=== PATIENT | male | born 1970 | race Hispanic/Latino ===

== ENCOUNTER 2021-11-30 06:20 | Day surgery (SDC) | payer BC ==
[2021-11-30] MEDS ORDERED: Ringers Lactate 1,000 ML IV ONE (06:38)
[2021-11-30] MEDS ORDERED: CEFAZOLIN/SWI 2gm 2 GM/20 ML SYR ONE (06:39)
[2021-11-30] MEDS ORDERED: KETOROLAC 30 MG/ML INJ ONE (07:07)
[2021-11-30] MEDS ORDERED: FENTANYL CITR 100 MCG/2 ML ONE (07:07)
[2021-11-30] MEDS ORDERED: propofoL 200 MG/20 ML VIAL IV ONE (07:07)
[2021-11-30] MEDS ORDERED: dexAMETHasone 10 MG/ML VIAL ONE (07:07)
[2021-11-30] MEDS ORDERED: LIDOCAINE 2% MPF 5 ML VIAL ONE (07:07)
[2021-11-30] MEDS ORDERED: ONDANSETRON 4 MG/2 ML VIAL ONE (07:08)
[2021-11-30] MEDS ORDERED: MIDAZOLAM HCL 2 MG/2 ML INJ ONE (07:08)
[2021-11-30] MEDS: BUPIVACAINE 0.25% PF 10 ML VIAL ONE ×2 (08:08→08:15)
[2021-11-30] MEDS ORDERED: NA CHLORIDE 0.9% 1,000 ML ONE (08:18)
--- NOTE | 2021-11-30 08:42 | P.BOP ---
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
[2021-11-30 10:37] VITALS: BP 123/72; O2SAT 99
[2021-11-30 10:45] VITALS: TEMP 97
--- NOTE | 2021-11-30 19:00 | OP ---
Date of Procedure: 11/30/2021 Surgeon: Luis Rapp MD Preoperative Diagnosis: Right knee medial meniscus tear. Postoperative Diagnosis: Right knee medial meniscus tear. Procedure Performed: Arthroscopic partial medial meniscectomy. Anesthesia: General, LMA. Fluids: Per Anesthesia record. Estimated Blood Loss: 3 cc. Complications: None. Implants: None. Tourniquet Time: 23 minutes at 300 mmHg. Indication For Procedure: Zeb is a 51-year-old male who presented to my clinic with signs, sympt oms, and MRI findings consistent with a right knee medial meniscus tear. The patient failed conserva tive treatment measures and after discussion with the patient risks and benefits associated with oper ative and nonoperative treatment he expressed understanding and elected to proceed with operative rex atment. Description Of Procedure: After informed consent was obtained, the patient was identified in the pre operative holding area. The right lower extremity was marked. The patient was then brought back to the operating room, transferred to the operating table in supine fashion, placed under general LMA an esthesia. The right lower extremity was then prepped and draped in usual sterile fashion. A time-ou t was initiated. The correct patient and procedure were confirmed and identified. The patient did r eceive his preop prophylactic antibiotics. Standard anteromedial, anterolateral portals were created . Arthroscope was brought in via the anterolateral portal and diagnostic arthroscopy was performed. The patient was noted to have pristine cartilage of the undersurface of patella and trochlear groove . There were no loose bodies found within the medial and lateral gutters. Arthroscope was then brou ght in the medial compartment. The patient was noted to have overall no significant chondromalacia n oted. Some mild fissuring noted to the medial femoral condyle. The patient noted to have a complex tear of the posterior horn of the medial meniscus. Partial medial meniscectomy was performed using m eniscal biters and arthroscopic shaver to smooth meniscal borders. The arthroscope was then brought in the intercondylar notch. The patient was noted to have an intact ACL and PCL which were stable to probe. The arthroscope was then brought in the lateral compartment. The patient was noted to have a pristine cartilage of the lateral femoral condyle as well as the lateral tibial plateau. Lateral m eniscus was stable to probe without tear. Arthroscopic instruments were then removed without complic ation. Wounds were then irrigated thoroughly with normal saline. Skin was approximated using 3-0 Mo nocryl. Sterile dressings were applied. Tourniquet was let down. The patient was awakened and bryson sferred back in stable condition. Postoperative Plan: The patient will be weightbearing as tolerated. Physical Therapy will be consul sandra and the patient will follow post meniscectomy protocol. He will follow up in 1 week for re-evalu ation and wound checks. VICTORINO/SAMMY Voice ID: [id number] Report ID: [id number]
== END 2021-11-30 10:25 | disposition home or self-care (01) ==
LOC: OR 06:20
PROVIDERS: ATTEND Orthopaedic Surgery Sports Medicine
PROC: 0SBC4ZZ Excision of Right Knee Joint, Percutaneous Endoscopic Approach (ICD-10-PCS; principal; 2021-11-30 07:30)
DX: S83.241A Other tear of medial meniscus, current injury, right knee, initial encounter (principal); M26.651 Arthropathy of right temporomandibular joint; Z20.822 Contact with and (suspected) exposure to COVID-19
CPT/HCPCS: 29881; U0002; J2704; J2250; J3010; J1100; J0690; J7120; J7030; J2405

== ENCOUNTER 2023-07-08 07:16 | Emergency (ER) | payer BC ==
--- OUTSIDE RECORDS SUMMARY | 2023-07-08 07:20 | XMS REPORT | Continuity of Care Document ---
:1970 Author Organization [facility] t Address [address] [address] [facility] [address] [place] [address] Care Team Providers Name Role Phone Sarahy Boyce Primary Care Physician [phone] Pcp, Patient Does Not Have A Attending Clinician [phone] Lab, Adc Fam Pob I Attending Clinician Unavailable Vicki Kaba Attending Clinician VICKI JUAREZ Attending Clinician Unavailable Doctor Unassigned, [place] Attending Clinician Unavailable Payers Payer Name Policy Type Policy Number Effective Date Expiration Date S nona Blue Cross C1 [id number] [facility] Blue Cross C1 [id number] [facility] Blue Cross C1 [id number] [facility] Blue Cross C1 [id number] [facility] Blue Cross C1 [id number] [facility] Blue Cross C1 [id number] [facility] Blue Cross C1 [id number] [facility] Blue Cross C1 [id number] Common Spiri t Blue [facility] Problems Condition Condition Condition Status Onset Resolution Last Treating Co mments Source Name Details Category Date Date Treatment Clinician Date [id number] Arthritis Problem Active Co mmon [id number] of knee, [facility] right [facility] [id number] Other Problem Active Common chronic [facility] pain [facility] [id number] Pain in Problem Active Comm on right knee [facility] [id number] Tear of Problem Active Commo n medial [facility] meniscus - [facility] of right [facility] unspecifie Medica l d tear Center type, unspecifie d whether old or current tear, initial encounter [id number] Pre-op Problem Active Common testing [facility] Allergies, Adverse Reactions, Alerts Allergy Allergy Status Severity Reaction(s) Onset Inactive Treating Comm ents Source Name Type Date Date Clinician Sachi Gomez Active Intraven ty to 05-29 ous adverse 00:00: reaction 00 to drug NO KNOWN Drug Active [facility] Social History Social Habit Start Date Stop Date Quantity Comments Source History of Tobacco Use Co mmon [facility] Sex Assigned At Com mon [facility] Smoking Status Start Date Stop Date Source Unknown if ever smoked [facility] Never Smoker [facility] Medications Ordered Filled Start Stop Current Ordering Indication Dosage Frequency Signature Comments Components Source Medication Medication Date Date Medication? Clinician (SIG) Name Name &lt 0 No - 00:00: 00 &lt 2021-0 No 05-29 00:00: 00 Dose 2021-0 No Unknown 05-29 00:00: 00 Dose 2021-0 No Unknown 05-29 00:00: 00 HYDROcodone HYDROcodone No 1{table HYDROcodon -Acetaminop -Acetaminop - t_as_ne e-Acetamin hen 5-325 hen 5-325 00:00: eded} ophen MG MG 00 5-325 MG HYDROcodone HYDROcodone 0 No 1{table HYDROcodon -Acetaminop -Acetaminop -06 t_as_ne e-Acetamin hen 5-325 hen 5-325 00:00: eded} ophen MG MG 00 5-325 MG HYDROcodone HYDROcodone 2021-0 No 1{table HYDROcodon -Acetaminop -Acetaminop 1-06 t_as_ne e-Acetamin hen 5-325 hen 5-325 00:00: eded} ophen MG MG 00 5-325 MG HYDROcodone HYDROcodone 2021-0 No 1{table HYDROcodon -Acetaminop -Acetaminop 1-06 t_as_ne e-Acetamin hen 5-325 hen 5-325 00:00: eded} ophen MG MG 00 5-325 MG HYDROcodone HYDROcodone 2021-0 No 1{table HYDROcodon -Acetaminop -Acetaminop 1-06 t_as_ne e-Acetamin hen 5-325 hen 5-325 00:00: eded} ophen MG MG 00 5-325 MG HYDROcodone HYDROcodone 2021-0 No 1{table HYDROcodon -Acetaminop -Acetaminop 1-06 t_as_ne e-Acetamin hen 5-325 hen 5-325 00:00: eded} ophen MG MG 00 5-325 MG HYDROcodone HYDROcodone 2021-0 No 1{table HYDROcodon -Acetaminop -Acetaminop 1-06 t_as_ne e-Acetamin hen 5-325 hen 5-325 00:00: eded} ophen MG MG 00 5-325 MG HYDROcodone HYDROcodone 2021-0 No 1{table -Acetaminop -Acetaminop 1-06 t_as_ne hen 5-325 hen 5-325 00:00: eded} MG MG 00 Bupivicaine Bupivicaine 2020-0 No Common [facility] [place] [facility] Spirit 00:00: - [facility]I 00 [facility] Kenalog Kenalog 2020-0 No 40mg Common (Triamcinol (Triamcinol 8-26 S pirit one) one) 00:00: - CHI 00 [facility] Bupivicaine Bupivicaine 2020-0 No Common [place] [facility] [place] [facility] 00:00: - [facility]I 00 [facility] Kenalog Kenalog 2020-0 No 40mg Common (Triamcinol (Triamcinol 8-26 S pirit one) one) 00:00: - CHI 00 [facility] fenofibrate 2021-0 No 1mg nanocrystal 5-16 lized 48 mg 00:00: tablet 00 Vitamin D2 No 1(50,00 1,250 mcg 5-16 0 unit) (50,000 00:00: unit) 00 capsule Vitamin D Vitamin D No Vitamin D (Ergocalcif (Ergocalcif (Ergocalci sobia) sobia) ferol) Fenofibrate Fenofibrate No Fenofibrat e Vitamin D Vitamin D No Vitamin D (Ergocalcif (Ergocalcif (Ergocalci sobia) sobia) ferol) Fenofibrate Fenofibrate No Fenofibrat e Vitamin D Vitamin D No Vitamin D (Ergocalcif (Ergocalcif (Ergocalci sobia) sobia) ferol) Fenofibrate Fenofibrate No Fenofibrat e Vitamin D Vitamin D No Vitamin D (Ergocalcif (Ergocalcif (Ergocalci sobia) sobia) ferol) Fenofibrate Fenofibrate No Fenofibrat e Vitamin D Vitamin D No Vitamin D (Ergocalcif (Ergocalcif (Ergocalci sobia) sobia) ferol) Fenofibrate Fenofibrate No Fenofibrat e Vitamin D Vitamin D No Vitamin D (Ergocalcif (Ergocalcif (Ergocalci sobia) sobia) ferol) Fenofibrate Fenofibrate No Fenofibrat e Fenofibrate Fenofibrate No Fenofibrat e Vitamin D Vitamin D No Vitamin D (Ergocalcif (Ergocalcif (Ergocalci sobia) sobia) ferol) No Known No Known No Common Medications Medications S pirit - CHI [facility] Fenofibrate Fenofibrate No Fenofibrat e Vitamin D Vitamin D No Vitamin D (Ergocalcif (Ergocalcif (Ergocalci sobia) sobia) ferol) Fenofibrate Fenofibrate No Fenofibrat e Vitamin D Vitamin D No Vitamin D (Ergocalcif (Ergocalcif (Ergocalci sobia) sobia) ferol) Fenofibrate Fenofibrate No Fenofibrat e Vitamin D Vitamin D No Vitamin D (Ergocalcif (Ergocalcif (Ergocalci sobia) sobia) ferol) Vitamin D Vitamin D No Vitamin D (Ergocalcif (Ergocalcif (Ergocalci sobia) sobia) ferol) Fenofibrate Fenofibrate No Fenofibrat e Vitamin D Vitamin D No Vitamin D (Ergocalcif (Ergocalcif (Ergocalci sobia) sobia) ferol) Fenofibrate Fenofibrate No Fenofibrat e Vitamin D Vitamin D No Vitamin D (Ergocalcif (Ergocalcif (Ergocalci sobia) sobia) ferol) Fenofibrate Fenofibrate No Fenofibrat e Vitamin D Vitamin D No Vitamin D (Ergocalcif (Ergocalcif (Ergocalci sobia) sobia) ferol) Fenofibrate Fenofibrate No Fenofibrat e Vitamin D Vitamin D No (Ergocalcif (Ergocalcif sobia) sobia) Fenofibrate Fenofibrate No Immunizations Ordered Immunization Filled Immunization Date Status Commen ts Source Name Name Tdap 2022-05-29 Completed 00:00:00 SHINGRIX VACCINE 2022-05-29 Completed 00:00:00 Bupivicaine [place] Bupivicaine [place] 2021 Completed [facility] 08:36:00 [facility] Bupivicaine [place] Bupivicaine [place] 2021 Completed [facility] 08:36:00 [facility] Bupivicaine [place] Bupivicaine [place] 2021 Completed [facility] 08:36:00 [facility] Bupivicaine [place] Bupivicaine [place] 2021 Completed [facility] 08:36:00 [facility] Wu Washburn 2021 Completed [facility] (Triamcinolone) (Triamcinolone) 08:35:00 [facility] Wu [place]burn 2021 Completed [facility] (Triamcinolone) (Triamcinolone) 08:35:00 [facility] Wu [place] 2021 Completed [facility] (Triamcinolone) (Triamcinolone) 08:35:00 [facility] Wu [place] 2021 Completed [facility] (Triamcinolone) (Triamcinolone) 08:35:00 [facility] Vital Signs Vital Name Observation Time Observation Value Comments Source height 2022-02-07 13:00:00 66 [in_i] Common S pirit [facility] weight 2022-02-07 13:00:00 183 [lb_av] Common [facility] temperature 2022-02-07 13:00:00 98.3 [degF] Common S pirit - [facility] bmi 2022-02-07 13:00:00 29.53 kg/m2 Common S pirit - [facility] blood pressure 2022-02-07 13:00:00 144 mm[Hg] [facility] - systolic [facility] blood pressure 2022-02-07 13:00:00 86 mm[Hg] [facility] - diastolic [facility] height 2022-01-10 13:00:00 66 [in_i] Common S [facility] weight 2022-01-10 13:00:00 183 [lb_av] Common S pirit [facility] temperature 2022-01-10 13:00:00 99.4 [degF] Common S pirit [facility] bmi 2022-01-10 13:00:00 29.53 kg/m2 Common S pirit [facility] blood pressure 2022-01-10 13:00:00 126 mm[Hg] [facility] - systolic [facility] blood pressure 2022-01-10 13:00:00 72 mm[Hg] [facility] - diastolic [facility] height 2021-12-20 13:50:00 66 [in_i] Common S pirit - [facility] weight 2021-12-20 13:50:00 183 [lb_av] Common S pirit [facility] temperature 2021-12-20 13:50:00 97.8 [degF] Common S pirit [facility] bmi 2021-12-20 13:50:00 29.53 kg/m2 Common S pirit [facility] blood pressure 2021-12-20 13:50:00 130 mm[Hg] [facility] - systolic [facility] blood pressure 2021-12-20 13:50:00 84 mm[Hg] [facility] - diastolic [facility] height 2021-12-06 13:15:00 66 [in_i] Common S pirit - [facility] weight 2021-12-06 13:15:00 183 [lb_av] Common S pirit - [facility] temperature 2021-12-06 13:15:00 98.0 [degF] Common S pirit - [facility] bmi 2021-12-06 13:15:00 29.53 kg/m2 Common S pirit - [facility] blood pressure 2021-12-06 13:15:00 112 mm[Hg] [facility] - systolic [facility] blood pressure 2021-12-06 13:15:00 74 mm[Hg] [facility] - diastolic [facility] bmi 2021-11-27 08:15:00 29.53 kg/m2 Common S pirit - [facility] blood pressure 2021-11-27 08:15:00 122 mm[Hg] [facility] - systolic [facility] blood pressure 2021-11-27 08:15:00 74 mm[Hg] [facility] - diastolic [facility] height 2021-11-27 08:15:00 66 [in_i] Common S pirit [facility] weight 2021-11-27 08:15:00 183 [lb_av] Common S pirit [facility] temperature 2021-11-27 08:15:00 97.3 [degF] Common S pirit - [facility] height 2021-10-08 08:45:00 66 [in_i] Common S pirit - [facility] weight 2021-10-08 08:45:00 177 [lb_av] Common S pirit [facility] bmi 2021-10-08 08:45:00 28.57 kg/m2 Common S pirit [facility] blood pressure 2021-10-08 08:45:00 126 mm[Hg] [facility] - systolic [facility] blood pressure 2021-10-08 08:45:00 72 mm[Hg] [facility] - diastolic [facility] height 2021-09-11 15:30:00 66 [in_i] [facility] weight 2021-09-11 15:30:00 177.5 [lb_av] [facility] temperature 2021-09-11 15:30:00 97.7 [degF] Common [facility] bmi 2021-09-11 15:30:00 28.65 kg/m2 Common S pirit [facility] blood pressure 2021-09-11 15:30:00 122 mm[Hg] [facility] - systolic [facility] blood pressure 2021-09-11 15:30:00 72 mm[Hg] Common [facility] - diastolic [facility] height 2021 08:00:00 66 [in_i] [facility] weight 2021 08:00:00 179 [lb_av] [facility] bmi 2021 08:00:00 28.89 kg/m2 [facility] blood pressure 2021 08:00:00 140 mm[Hg] [facility] - systolic [facility] blood pressure 2021 08:00:00 82 mm[Hg] [facility] - diastolic [facility] BP Systolic 2022-05-29 08:28:00 138 mm[Hg] BP Diastolic 2022-05-29 08:28:00 78 mm[Hg] Weight Measured 2022-05-29 08:28:00 173.60 pounds Height Measured 2022-05-29 08:28:00 68.00 inches Body Temperature 2022-05-29 08:28:00 98.60 degrees Heart Rate 2022-05-29 08:28:00 62.00 /min Respiratory Rate 2022-05-29 08:28:00 BP Systolic 2021-04-03 13:27:00 149 mm[Hg] BP Diastolic 2021-04-03 13:27:00 73 mm[Hg] Weight Measured 2021-04-03 13:27:00 185.40 pounds Height Measured 2021-04-03 13:27:00 68.00 inches Body Temperature 2021-04-03 13:27:00 98.50 degrees Heart Rate 2021-04-03 13:27:00 68.00 /min Respiratory Rate 2021-04-03 13:27:00 24.00 /min Procedures This patient has no known procedures. Plan of Care Planned Activity Planned Date Details Comments Source Goal Plan of Care Note [code = 89696-0] Goal Plan of Care Note [code = 54051-4] Goal Plan of Care Note [code = 26120-5] Goal Plan of Care Note [code = 47564-3] Goal Plan of Care Note [code = 04383-2] Goal Plan of Care Note [code = 37920-3] Goal Plan of Care Note [code = 66637-1] Goal Plan of Care Note [code = 28652-8] Goal Plan of Care Note [code = 01143-7] Goal Plan of Care Note [code = 80305-5] Goal Plan of Care Note [code = 14768-1] Goal Plan of Care Note [code = 60218-6] Encounters Start End Encounter Admission Attending Care Care Encounter Source Date/Time Date/Time Type Type Clinicians Facility Department ID 2022-02-13 Outpatient STLMLC STLMLC [id number] Common 10:20:02 [facility] 2021-12-19 Outpatient STLMLC STLMLC [id number] Common 13:58:50 [id number] [facility] 2021-12-19 Outpatient STLMLC STLMLC [id number] Common 13:42:59 [id number] [facility] 2022-10-18 2022-10-18 Outpatient SFA SFA [id number] Patrice 08:14:03 08:14:03 [id number] Lisa Herron 2022-05-29 2022-05-29 Outpatient [id number] 00:00:00 00:00:00 Visit [id number] 2022-02-07 2022-02-07 NON-BILLAB STLMLC STLMLC [id number] Common 00:00:00 00:00:00 LE VISIT [facility] 2022-01-10 2022-01-10 NON-BILLAB STLMLC STLMLC [id number] Common 00:00:00 00:00:00 LE VISIT [facility] 2021-12-20 2021-12-20 NON-BILLAB STLMLC STLMLC [id number] Common 00:00:00 00:00:00 LE VISIT [facility] 2021-12-07 2021-12-07 (TEL) STLMLC STLMLC [id number] Co mmon 00:00:00 00:00:00 [facility] 2021-12-06 2021-12-06 NON-BILLAB STLMLC STLMLC [id number] Common 00:00:00 00:00:00 LE VISIT [facility] 2021-11-29 2021-11-29 (TEL) STLMLC STLMLC [id number] Co mmon 00:00:00 00:00:00 [facility] 2021-11-27 2021-11-27 OFFICE STLMLC STLMLC [id number] Co mmon 00:00:00 00:00:00 VISIT [facility] 4 [facility] 2021-11-06 2021-11-06 (TEL) STLMLC STLMLC [id number] Co mmon 00:00:00 00:00:00 [facility] 2021-10-30 2021-10-30 (TEL) STLMLC STLMLC [id number] Co mmon 00:00:00 00:00:00 [facility] 2021-10-25 2021-10-25 (TEL) STLMLC STLMLC [id number] Co mmon 00:00:00 00:00:00 [facility] 2021-10-11 2021-10-11 (TEL) STLMLC STLMLC [id number] Co mmon 00:00:00 00:00:00 [facility] 2021-10-082021-10-08 OFFICE STLMLC STLMLC [id number] Co mmon 00:00:00 00:00:00 VISIT Spirit ESTAB PT - CHI LEVEL 4 [facility] 2021-10-02 2021-10-02 (TEL) STLMLC STLMLC [id number] Co mmon 00:00:00 00:00:00 [facility] CHI [facility] 2021-09-12 2021-09-12 (TEL) STLMLC STLMLC [id number] Co mmon 00:00:00 00:00:00 Spirit - [facility]I [facility] 2021-09-11 2021-09-11 OFFICE STLMLC STLMLC [id number] Co mmon 00:00:00 00:00:00 VISIT Spirit ESTAB PT - CHI LEVEL 4 [facility] 2021-08-27 2021-08-27 (TEL) STLMLC STLMLC [id number] Co mmon 00:00:00 00:00:00 [facility] 2021 2021 OFFICE STLMLC STLMLC [id number] Co mmon 00:00:00 00:00:00 VISIT NEW Spir it PT LEVEL 4 [facility] 2020-06-07 2020-06-07 Letter Pcp, [facility] [id number] [facility] 00:00:00 00:00:00 (Out) Patient Health [id number] it y of [place] [phone] Ak dical nal [address] [facility] 2020-06-07 2020-06-07 Telephone Pcp, [facility] [id number] Univers 00:00:00 00:00:00 Patient Health [id number] it y of [place] 4[place]2.7.2.686 [place] [phone] Ak dical nal 044 [facility] 2020-06-05 2020-06-05 Laboratory Lab, Adc Fam Pob I [facility] 1.2. [id number] Univers 12:51:43 13:11:43 Only Vicki Juarez Health [id number] ity of [place] 4.2.7.2.686 Ch[place] as Professio [phone] [facility] [address] [facility] 2020-06-05 2020-06-05 Outpatient R ANN, [facility] [id number] Univers 13:00:00 13:00:00 VICKI ity of [facility] 2020-06-05 2020-06-05 Letter Doctor CECI [id number] Univers 00:00:00 00:00:00 (Out) Unassigned, SKY 350.1.13.10 ity of [place] [facility] 4.2.7.2.686 Chidi as [phone] [address] Results Test Description Test Time Test Comments Results Result Comments Source HEMOGLOBIN A1c 2022-05-30 22:25:21 Test Item Value Reference Range Interpretation Comme nts HEMOGLOBIN A1c (test code = 15922) 5.8 % 4.2-5.6 H CBC W/AUTO DIFF WITH [id number] 14:14:28 Test Item Value Reference Range Interpretation Comments WBC (test code = 7.0 K/UL 3.5-11.0 1001) RBC (test code = 5.12 M/UL 4.50-6.10 1002) HEMOGLOBIN (test code 16.4 G/DL 13.5-17.0 = 1003) HEMATOCRIT (test code 47.1 % 40.0-51.0 = 1004) MCV (test code = 92.0 fL 80.0-99.0 1005) MCH (test code = 32.0 PG 25.0-33.0 1006) MCHC (test code = 34.8 G/DL 31.0-36.0 1007) RDW (test code = 12.9 % 11.5-15.0 1038) NEUTROPHILS (test 52.2 % code = 1008) LYMPHOCYTES (test 36.0 % code = 1010) MONOCYTES (test code 6.2 % = 1011) EOSINOPHILS (test 4.6 % code = 1012) BASOPHILS (test code 0.9 % = 1013) IMMATURE GRANULOCYTES 0.1 % (test code = 1036) NUCLEATED RBCS (test 0.0 /100 WBC'S See_Comment [Aut omated code = 1065) message] The sy stem which generated this result transmitted reference range : 0.0. The refere nce range was not u sed to interpret th is result as normal/abnormal . PLATELET COUNT (test 235 K/UL 130-400 code = 1015) ABSOLUTE NEUTROPHILS 3.65 K/UL 1.50-7.50 (test code = 1066) ABSOLUTE LYMPHOCYTES 2.51 K/UL 1.00-4.00 (test code = 1067) ABSOLUTE MONOCYTES 0.43 K/UL 0.20-1.00 (test code = 1068) ABSOLUTE EOSINOPHILS 0.32 K/UL 0.00-0.50 (test code = 1040) ABSOLUTE BASOPHILS 0.06 K/UL 0.00-0.20 (test code = 1069) ABS IMMATURE 0.01 K/UL 0.00-0.10 GRANULOCYTES (test code = 1020) ABS NUCLEATED RBCS 0.00 K/UL 0.00-0.11 (test code = 71859) LIPID [id number] 07:02:55 Test Item Value Reference Range Interpretation Comments CHOLESTEROL (test 227 MG/DL <200 H code = 2210) TRIGLYCERIDES (test 115 MG/DL <150 code = 2232) HDL CHOLESTEROL (test 53 MG/DL >39 code = 2220) CALC LDL CHOL (test 151 MG/DL <100 H NOTE: C ALCULATED LDL code = 2237) IS BASED ON STORM-PLATT METHOD WHICHINCLUDES ADJUSTABLE TRIGLYCERIDE:VL DL CHOLESTEROL RAT IO.THIS FACTOR VARIES B Y MEASURED TRIGLY CERIDE AND NON-HDLCHOL ESTEROL CONCENTRATIONS WITH INCREASED CALCU LATED LDL SEENIN HIGH ER TRIGLYCERIDE OR LOWER NON-HDL SPECIME NS. FOR MOREINFORMATION , SEE CLIENT ANNOUNCE MENT AT [email or web address] RISK RATIO LDL/HDL 2.85 RATIO <3.55 (test code = 2238) COMPREHENSIVE METABOLIC [id number] 07:02:55 Test Item Value Reference Range Interpretation Comments GLUCOSE (test code = 105 MG/DL 70-99 H 2216) BUN (test code = 16 MG/DL 6-20 2207) CREATININE (test 1.00 MG/DL 0.80-1.40 code = 2214) eGFR (2020 CKD-EPI) 91 ML/MIN/1.73 >60 (test code = 27670) CALC BUN/CREAT (test 16 RATIO 6-28 code = 2235) SODIUM (test code = 140 MEQ/L [phone]) POTASSIUM (test code 4.2 MEQ/L 3.5-5.4 = 2227) CHLORIDE (test code 106 MEQ/L 95-107 = 221) CARBON DIOXIDE (test 22 MEQ/L 19-31 code = 2206) CALCIUM (test code = 9.5 MG/DL 8.5-10.5 2208) PROTEIN, TOTAL (test 7.2 G/DL 6.1-8.3 code = 222) ALBUMIN (test code = 4.3 G/DL 3.5-5.2 2200) CALC GLOBULIN (test 2.9 G/DL 1.9-3.7 code = 2240) CALC A/G RATIO (test 1.5 RATIO 1.0-2.6 code = 223) BILIRUBIN, TOTAL 0.6 MG/DL See_Comment [Automated message] (test code = 2206) The syste m which generated this result transmit sandra reference range : <=1.2. The refe rence range was not u sed to interpret th is result as normal/abnormal . ALKALINE PHOSPHATASE 98 U/L 40-121 (test code = 2203) AST (test code = 32 U/L 9-50 2217) ALT (test code = 45 U/L 5-50 2218) PSA, [id number] 06:08:23 Test Item Value Reference Range Interpretation Comments PSA, TOTAL 0.62 NG/ML See_Comment NOTE: Methodol ogy is Dominguez (test code = Kaela Electroch emiluminescence 2606) Immunoassay tra ceable to WHO reference stand antonio 96/760. [Automated mess age] The system which generated this result transmitted ref erence range: <=4.00. The ref erence range was not used to int erpret this result as jael l/abnormal. HIV 1/2 4TH GEN, RFLX [id number] 06:07:51 Test Item Value Reference Range Interpretation Comments HIV 1/2 4TH GEN, NON-REACTIVE NON-REACTIVE UNLESS OTH ERWISE RFLX CONF (test INDICATED, A LL TESTING code = 3514) PERFORMED ATCLI NICAL PATHOLOGY [employer]. [address] [place] [id number] [facility] DIRECTOR: CA JUNE M.D. CLIA NUMBER [id number] [facility] ACCREDITATION N O. [id number] 00:00:00 Test Item Value Reference Range Interpretation Comments TSH, THIRD GENERATION (test code 0.559 UIU/ML = 2821) [id number] 00:00:00 Test Item Value Reference Range Interpretation Comments TSH, THIRD GENERATION (test code 0.559 UIU/ML = 2821) CBC W/AUTO [id number] 00:00:00 Test Item Value Reference Range Interpretation Comments WBC (test code = 1001) 7.3 K/UL RBC (test code = 1002) 5.18 M/UL HEMOGLOBIN (test code = 1003) 16.6 G/DL HEMATOCRIT (test code = 1004) 46.3 % MCV (test code = 1005) 89.4 fL MCH (test code = 1006) 32.0 PG MCHC (test code = 1007) 35.9 G/DL RDW (test code = 1038) 13.0 % NEUTROPHILS (test code = 1008) 55.7 % LYMPHOCYTES (test code = 1010) 35.1 % MONOCYTES (test code = 1011) 6.2 % EOSINOPHILS (test code = 1012) 1.9 % BASOPHILS (test code = 1013) 0.8 % IMMATURE GRANULOCYTES (test 0.3 % code = 1036) NUCLEATED RBCS (test code = 0.0 /100WBC'S 1065) PLATELET COUNT (test code = 249 K/UL 1015) ABSOLUTE NEUTROPHILS (test code 4.05 K/UL = 1066) ABSOLUTE LYMPHOCYTES (test code 2.55 K/UL = 1067) ABSOLUTE MONOCYTES (test code = 0.45 K/UL 1068) ABSOLUTE EOSINOPHILS (test code 0.14 K/UL = 1040) ABSOLUTE BASOPHILS (test code = 0.06 K/UL 1069) ABS IMMATURE GRANULOCYTES (test 0.02 K/UL code = 1020) ABS NUCLEATED RBCS (test code = 0.00 K/UL 86595) CBC W/AUTO [id number] 00:00:00 Test Item Value Reference Range Interpretation Comments WBC (test code = 1001) 7.3 K/UL RBC (test code = 1002) 5.18 M/UL HEMOGLOBIN (test code = 1003) 16.6 G/DL HEMATOCRIT (test code = 1004) 46.3 % MCV (test code = 1005) 89.4 fL MCH (test code = 1006) 32.0 PG MCHC (test code = 1007) 35.9 G/DL RDW (test code = 1038) 13.0 % NEUTROPHILS (test code = 1008) 55.7 % LYMPHOCYTES (test code = 1010) 35.1 % MONOCYTES (test code = 1011) 6.2 % EOSINOPHILS (test code = 1012) 1.9 % BASOPHILS (test code = 1013) 0.8 % IMMATURE GRANULOCYTES (test 0.3 % code = 1036) NUCLEATED RBCS (test code = 0.0 /100WBC'S 1065) PLATELET COUNT (test code = 249 K/UL 1015) ABSOLUTE NEUTROPHILS (test code 4.05 K/UL = 1066) ABSOLUTE LYMPHOCYTES (test code 2.55 K/UL = 1067) ABSOLUTE MONOCYTES (test code = 0.45 K/UL 1068) ABSOLUTE EOSINOPHILS (test code 0.14 K/UL = 1040) ABSOLUTE BASOPHILS (test code = 0.06 K/UL 1069) ABS IMMATURE GRANULOCYTES (test 0.02 K/UL code = 1020) ABS NUCLEATED RBCS (test code = 0.00 K/UL 59586) HEMOGLOBIN [id number] 00:00:00 Test Item Value Reference Range Interpretation Comments HEMOGLOBIN A1c (test code = 10019) 5.9 % HEMOGLOBIN [id number] 00:00:00 Test Item Value Reference Range Interpretation Comments HEMOGLOBIN A1c (test code = 93118) 5.9 % LIPID [id number] 00:00:00 Test Item Value Reference Range Interpretation Comments CHOLESTEROL (test code = 2210) 237 MG/DL TRIGLYCERIDES (test code = 2232) 722 MG/DL HDL CHOLESTEROL (test code = 39 MG/DL 2220) CALC LDL CHOL (test code = 2237) (NOTE) MG/DL RISK RATIO LDL/HDL (test code = (NOTE) RATIO 2238) COMPREHENSIVE METABOLIC [id number] 00:00:00 Test Item Value Reference Range Interpretation Comments GLUCOSE (test code = 2217) 106 MG/DL BUN (test code = 2208) 18 MG/DL CREATININE (test code = 2214) 0.86 MG/DL eGFR AMER. (test code 116 ML/MIN/1.73 = 63296) eGFR NON- AMER. (test 100 ML/MIN/1.73 code = 61489) CALC BUN/CREAT (test code = 21 RATIO 5) SODIUM (test code = 2231) 142 MEQ/L POTASSIUM (test code = 2228) 4.1 MEQ/L CHLORIDE (test code = 2215) 106 MEQ/L CARBON DIOXIDE (test code = 24 MEQ/L 2205) CALCIUM (test code = 2209) 9.3 MG/DL PROTEIN, TOTAL (test code = 7.1 G/DL 2228) ALBUMIN (test code = 220) 4.3 G/DL CALC GLOBULIN (test code = 2.8 G/DL 2239) CALC A/G RATIO (test code = 1.5 RATIO 2233) BILIRUBIN, TOTAL (test code = 0.2 MG/DL 2206) ALKALINE PHOSPHATASE (test 94 U/L code = 2204) AST (test code = 2218) 29 U/L ALT (test code = 2219) 49 U/L VITAMIN D, 25 [id number] 00:00:00 Test Item Value Reference Range Interpretation Comments VITAMIN D, 25 OH (test code = 4958) 9 NG/ML PSA, [id number] 00:00:00 Test Item Value Reference Range Interpretation Comments PSA, TOTAL (test code = 2606) 0.56 NG/ML PSA, [id number] 00:00:00 Test Item Value Reference Range Interpretation Comments PSA, TOTAL (test code = 2606) 0.56 NG/ML
[2023-07-08 08:28] LABS: SARS-CoV-2 Antigen Rapid Res Negative (Negative)
--- NOTE | 2023-07-08 08:38 | RAD REPORT ---
EXAM DESCRIPTION: Margaret Single View07/08/2023 8:13 am CLINICAL HISTORY: Fever COMPARISON: 2020 FINDINGS: The lungs appear clear of acute infiltrate. The heart is normal size IMPRESSION: No acute abnormalities displayed
[2023-07-08] MEDS ORDERED: OSELTAMIVIR 75 MG CAP PO ONE (08:51)
--- NOTE | 2023-07-08 09:08 | ER ---
Nurse's Notes [facility] Name: Zeb Sanders Age: 52 yrs Sex: Male : 1970 Arrival Date: 07/08/2023 Time: 07:16 Bed 7 Private MD: Diagnosis: Influenza due to other identified influenza virus with gastrointestinal manifestations Presentation: 07/08 07:29 Chief complaint: Patient states: he started having fevers, and joint pain approx 2 days ap3 ago on 07/06/23. Patient also reports cough and congestions for same amount of time. Patient doesn't know to what degree his fever was. Coronavirus screen: Client presents with at least one sign or symptom that may indicate coronavirus-19. Ebola Screen: No symptoms or risks identified at this time. Initial Sepsis Screen: Does the patient meet any 2 criteria? No. Patient's initial sepsis screen is negative. Does the patient have a suspected source of infection? Yes: Productive cough/pneumonia. Risk Assessment: Do you want to hurt yourself or someone else? Patient reports no desire to harm self or others. Onset of symptoms was July 06, 2023. 07:29 Method Of Arrival: Ambulatory ap3 07:29 Acuity: YOANDY 4 ap3 Triage Assessment: 07:31 General: Appears ill, Behavior is calm, cooperative, appropriate for age. Pain: ap3 Complains of pain in generalized body aches. Neuro: Level of Consciousness is awake, alert, obeys commands, Oriented to person, place, time, situation. Cardiovascular: Patient's skin is warm and dry. Respiratory: Reports cough that is Airway is patent Respiratory effort is even, unlabored, Respiratory pattern is regular, symmetrical. Historical: - Allergies: 07:31 No Known Allergies; ap3 - Home Meds: 07:31 None [Active]; ap3 - PMHx: 07:31 None; ap3 - Immunization history:: Client reports receiving the 2nd dose of the Covid vaccine. - Social history:: Smoking status: Patient denies any tobacco usage or history of. - Family history:: not pertinent. - Hospitalizations: : No recent hospitalization is reported. Screenin:32 [facility] ED Fall Risk Assessment (Adult) History of falling in the last 3 months, ap3 including since admission No falls in past 3 months (0 pts). Abuse screen: Denies threats or abuse. Nutritional screening: No deficits noted. Tuberculosis screening: No symptoms or risk factors identified. Assessment: 07:50 General: Appears in no apparent distress. Behavior is calm, cooperative, appropriate ph for age, Reports fever for 2-3 days. Pain: Complains of pain in body aches. Neuro: Level of Consciousness is awake, alert, obeys commands, Oriented to person, place, time, situation. Cardiovascular: Capillary refill < 3 seconds Patient's skin is warm and dry. Respiratory: Reports cough that is non-productive, Airway is patent Respiratory effort is even, unlabored, Respiratory pattern is regular, symmetrical. GI: No signs and/or symptoms were reported involving the gastrointestinal system. Derm: Skin is healthy with good turgor, Skin is pink, warm \T\ dry. Vital Signs: 07:29 BP 131 / 91; Pulse 68; Resp 18; Temp 98.9; Pulse Ox 98% ; Weight 78.93 kg; ap3 09:20 BP 122 / 87; Pulse 65; Resp 19; Temp 98.2; Pulse Ox 99% on R/A; ph ED Course: 07:23 Patient arrived in ED. ts1 07:27 Rashaun Varner MD is Attending Physician. rn 07:31 Triage completed. ap3 07:32 Arm band placed on right wrist. ap3 07:32 Patient has correct armband on for positive identification. Bed in low position. Call ap3 light in reach. Pulse ox on. NIBP on. 07:37 Elena Jimenez RN is Primary Nurse. ph 07:49 Strep Sent. ph 07:49 Flu Sent. ph 07:49 SARS RAPID Sent. ph 08:15 XRAY Chest (1 view) In Process Unspecified. EDMS 09:19 No provider procedures requiring assistance completed. Patient did not have IV access ph during this emergency room visit. Administered Medications: 08:49 Drug: Oseltamivir PO 75 mg Route: PO; ph 09:20 Follow up: Response: No adverse reaction ph Medication: 08:01 VIS not applicable for this client. ph Outcome: 09:07 Discharge ordered by . rn 09:19 Discharged to home ambulatory. ph 09:19 Condition: good 09:19 Discharge instructions given to patient, Instructed on discharge instructions, follow up and referral plans. medication usage, Demonstrated understanding of instructions, follow-up care, medications, Prescriptions given X 2. 09:21 Patient left the ED. ph Signatures: Dispatcher [employer] EDMS Rashaun Varner MD MD rn Hall, Patricia, RN RN Gela Juan RN RN ap3 Nina Alfred PAS PAS ts1 Corrections: (The following items were deleted from the chart) 07:31 07:31 Allergies: Aspirin; ap3 ap3
--- NOTE | 2023-07-08 09:08 | EDPHYS ---
Physician Documentation [facility] Name: Zeb Sanders Age: 52 yrs Sex: Male : 1970 Arrival Date: 07/08/2023 Time: 07:16 Bed 7 Private MD: ED Physician Rashaun Varner HPI: 07/08 08:44 This 52 yrs old Male presents to ER via Ambulatory with complaints of Fever, rn General Weakness, Body pain. 08:44 The patient reports fever, not measured (subjective). Onset: The symptoms/episode rn began/occurred 3 day(s) ago. Modifying factors: there are no obvious modifying factors. Associated signs and symptoms: Pertinent positives: arthralgias, chills, cough, runny nose, sore throat, Pertinent negatives: abdominal pain, altered mental status, diarrhea, skin rash, shortness of breath. Severity of symptoms: At their worst the symptoms were mild in the emergency department the symptoms are unchanged. The patient has not experienced similar symptoms in the past. The patient has not recently seen a physician. Historical: - Allergies: 07:31 No Known Allergies; ap3 - Home Meds: 07:31 None [Active]; ap3 - PMHx: 07:31 None; ap3 - Immunization history:: Client reports receiving the 2nd dose of the Covid vaccine. - Social history:: Smoking status: Patient denies any tobacco usage or history of. - Family history:: not pertinent. - Hospitalizations: : No recent hospitalization is reported. ROS: 08:44 Constitutional: + fever and chills Cardiovascular: Negative for chest pain, rn palpitations, and edema, Respiratory: Negative for shortness of breath, wheezing, and pleuritic chest pain, Abdomen/GI: Negative for abdominal pain, nausea, vomiting, diarrhea, and constipation, MS/Extremity: Negative for injury and deformity, Skin: Negative for injury, rash, and discoloration, Neuro: + headache Exam: 08:44 Constitutional: This is a well developed, well nourished patient who is awake, alert, rn and in no acute distress. Head/Face: Normocephalic, atraumatic. Eyes: Pupils equal round and reactive to light, extra-ocular motions intact. ENT: No stridor, +MMM, no swelling, uvula midline Neck: Trachea midline, no masses palpated, and no cervical lymphadenopathy. Supple, full range of motion without nuchal rigidity, or vertebral point tenderness. No Meningismus. Cardiovascular: Regular rate and rhythm. No pulse deficits. Respiratory: No increased work of breathing, no retractions or nasal flaring. Abdomen/GI: Soft, non-tender Skin: Warm, dry MS/ Extremity: Pulses equal, no cyanosis. Neuro: Awake and alert, GCS 15 Vital Signs: 07:29 BP 131 / 91; Pulse 68; Resp 18; Temp 98.9; Pulse Ox 98% ; Weight 78.93 kg; ap3 09:20 BP 122 / 87; Pulse 65; Resp 19; Temp 98.2; Pulse Ox 99% on R/A; ph MDM: 07:27 Patient medically screened. rn 09:05 Differential diagnosis: viral Infection, bacterial infection, URI, pneumonia. Data rn reviewed: vital signs, nurses notes, lab test result(s), radiologic studies, plain films, and as a result, I will discharge patient. Counseling: I had a detailed discussion with the patient and/or guardian regarding: the historical points, exam findings, and any diagnostic results supporting the discharge/admit diagnosis, lab results, radiology results, the need for outpatient follow up, to return to the emergency department if symptoms worsen or persist or if there are any questions or concerns that arise at home. Response to treatment: the patient's symptoms have mildly improved after treatment, and as a result, I will discharge patient. Special discussion: I discussed with the patient/guardian in detail that at this point there is no indication for admission to the hospital. It is understood, however, that if the symptoms persist or worsen the patient needs to return immediately for re-evaluation. 07/08 07:34 Order name: SARS RAPID; Complete Time: 08:43 rn 07/08 07:34 Order name: Flu; Complete Time: 08:43 rn 07/08 07:34 Order name: Strep rn 07/08 08:24 Order name: Throat Culture EDMS 07/08 07:34 Order name: XRAY Chest (1 view); Complete Time: 08:43 rn Administered Medications: 08:49 Drug: Oseltamivir PO 75 mg Route: PO; ph 09:20 Follow up: Response: No adverse reaction ph Disposition Summary: 07/08/23 09:07 Discharge Ordered Location: Home rn Problem: new rn Symptoms: have improved rn Condition: Stable rn Diagnosis - Influenza due to other identified influenza virus with gastrointestinal rn manifestations Followup: rn - With: Private Physician - When: As needed - Reason: Recheck today's complaints, Re-evaluation by your physician Discharge Instructions: - Discharge Summary Sheet rn - Influenza, Adult rn Forms: - Medication Reconciliation Form rn - Thank You Letter rn - Antibiotic alternative education teacher - Prescription Opioid Use rn - Patient Portal Instructions rn - Leadership Thank You Letter rn - Work release form Prescriptions: - ondansetron 4 mg Oral Tablet,disintegrating - take 1 tablet by ORAL route every 8 hours As needed; 12 tablet; Refills: 0, rn Product Selection Permitted - Tamiflu 75 mg Oral Capsule - take 1 tablet by ORAL route every 12 hours for 5 days; 10 tablet; Refills: 0, rn Product Selection Permitted Signatures: Dispatcher [employer] Rashaun Villar MD MD rn Hall, Patricia, RN RN Gela Sarmiento RN RN ap3 Corrections: (The following items were deleted from the chart) 07:31 07:31 Allergies: Aspirin; ap3 ap3
[2023-07-08 09:26] VITALS: BP 122/87; TEMP 98.2; O2SAT 99
== END 2023-07-08 09:21 | disposition home or self-care (01) ==
LOC: ER 07:16
DX: J10.2 Influenza due to other identified influenza virus with gastrointestinal manifestations (principal); Z20.822 Contact with and (suspected) exposure to COVID-19
CPT/HCPCS: 36415; 71045; 87070; 87081; 87804; 87811; 99284